=== PATIENT | male | born 1985 | race Two or more races ===

== ENCOUNTER 2017-08-18 05:58 | Emergency (ER) | payer SELFPAY ==
[2017-08-18] MEDS ORDERED: AMOXICILLIN TRIHYDRATE 500 MG CAPSULE PO ONE (06:52)
--- NOTE | 2017-08-18 06:52 | ER Document Report ---
ED General - General Mode of Arrival: Ambulatory Information source: Patient - HPI Onset: Yesterday Onset/Duration: Sudden - General Chief Complaint: Ear Pain Stated Complaint: EAR PAIN Time Seen by Provider: 08/18/17 06:31 Notes: Patient is a 31 year old male presenting to the emergency department complaining of left ear pain onset yesterday. Patient states his ear was throbbing yesterday so the put sweet oil drops in it and went to bed. Patient states he woke up this morning with no pain but there was blood on his pillow and he could not hear out of his left ear . Patient states he took NyQuil for a fever. (PAUL THURSTON) - Related Data Allergies/Adverse Reactions: No Known Allergies Allergy (Verified 08/18/17 06:54) Past Medical History - General Information source: Patient - Social History Smoking Status: Current Every Day Smoker Cigarette use (# per day): Yes - 1 pack a day Frequency of alcohol use: None Drug Abuse: None Family History: Reviewed & Not Pertinent Review of Systems - Review of Systems Constitutional: No symptoms reported EENT: See HPI, Ear pain, Ear discharge - blood Cardiovascular: No symptoms reported Respiratory: No symptoms reported Gastrointestinal: No symptoms reported Genitourinary: No symptoms reported Male Genitourinary: No symptoms reported Musculoskeletal: No symptoms reported Skin: No symptoms reported Hematologic/Lymphatic: No symptoms reported Neurological/Psychological: No symptoms reported -: Yes All other systems reviewed and negative Physical Exam - General General appearance: Appears well, Alert In distress: None - HEENT Head: Normocephalic, Atraumatic Eyes: Normal Conjunctiva: Normal Pupils: PERRL Tympanic membrane: Perforation, Other - left TM is dark red with a blood clot in the center, no sign of tear of the TM, possible central perforation Pharynx: Erythema - Respiratory Respiratory status: No respiratory distress Chest status: Nontender Breath sounds: Normal - Cardiovascular Rhythm: Regular Heart sounds: Normal auscultation - Back Back: Normal - Extremities General upper extremity: Normal ROM General lower extremity: Normal ROM - Neurological Neuro grossly intact: Yes Cognition: Normal Orientation: AAOx4 [place] Coma Scale Eye Opening: Spontaneous [place] Coma Scale Verbal: Oriented [place] Coma Scale Motor: Obeys Commands [place] Coma Scale Total: 15 Speech: Normal - Psychological Associated symptoms: Normal affect, Normal mood - Skin Skin Temperature: Warm Skin Moisture: Dry Skin Color: Normal - Vital signs Vitals: Temp Pulse Resp BP Pulse Ox 98.7 F 81 16 148/94 H 97 08/18/17 07:17 08/18/17 07:17 08/18/17 07:17 08/18/17 07:17 08/18/17 07:17 - Vital Signs Vital signs: Temp Pulse Resp BP Pulse Ox 98.7 F 81 16 148/94 H 97 08/18/17 07:17 08/18/17 07:17 08/18/17 07:17 08/18/17 07:17 08/18/17 07:17 Discharge - Discharge Clinical Impression: Left otitis media with spontaneous rupture of eardrum Condition: Stable Disposition: HOME, SELF-CARE Additional Instructions: Perforated Eardrum: You have a ruptured eardrum. The ruptured eardrum alone is usually not serious. It will probably heal completely within a week or two. If the perforation is too large to heal, further treatment may be necessary. Antibiotics are given if the perforation resulted from infection, or if the middle ear cavity may have been contaminated at the time of perforation. Do not allow any water to get into your ear until the doctor has told you the eardrum is healed. Use an earplug or Vaseline-covered cotton ball for showers. DO NOT SWIM. Follow-up examination to assure complete healing and complete return of hearing will be necessary, and is usually done in one week. If there is purulent drainage, increasing pain, or fever, call the doctor or return at once for re-evaluation. //////////////////////////////////////////////////////////////////////////////// //////////////////////////////////////////////////////////////////////////////// Take the amoxicillin as prescribed. Do not allow any water or other material to get into the left ear. Call [facility] today to schedule an appointment next week with Dr. Deng. Rest over the next several days. RETURN TO THE EMERGENCY ROOM IF ANY NEW OR WORSENING SYMPTOMS. Prescriptions: Amoxicillin 1 tab PO TID #30 tab Forms: Return to Work Referrals: JONO DENG DO [ASSOCIATE] - Follow up in 1 week (Call today for an appointment next week.) Scribe Attestation: 08/18/17 07:05 I personally performed the services described in the documentation, reviewed and edited the documentation which was dictated to the scribe in my presence, and it accurately records my words and actions. (CECILE SMITH) Scribe Documentation - Scribe Written by Nicholas:: Nicholas Godoy, 08/18/2017 07:31 acting as scribe for :: Kate
[2017-08-18 07:19] VITALS: BP 148/94
== END 2017-08-18 07:19 | disposition home or self-care (01) ==
LOC: ER 05:58
DX: H66.92 Otitis media, unspecified, left ear (principal); H72.92 Unspecified perforation of tympanic membrane, left ear; H92.02 Otalgia, left ear; F17.210 Nicotine dependence, cigarettes, uncomplicated
CPT/HCPCS: 99282